=== PATIENT | female | born 1955 | race Caucasian/White ===

== ENCOUNTER 2017-11-05 18:35 | Emergency (ER) | payer OTHER, MEDICAID ==
[2017-11-05 19:12] VITALS: BMI 27.4
[2017-11-05] MEDS ORDERED: CATAPRES TAB 0.1 MG PO ONE (19:51)
--- NOTE | 2017-11-05 19:51 | DR.GENAD ---
HPI - PCP Primary Care Physician: CLINTON - Complaint/Symptoms Chief Complaint Doctors Comments: Patient states that she broke her toes of the left foot just before Thanksgiving. She presents with complaint of toe pain Chief Complaint:: PT STATES" MY BLOOD PRESSUE IS HIGH AND I HURT MY FOOT AND I THINK THE PAIN IS CAUSING MY BLOOD PRESSURE TO GO UP." PT POINTS TO LEFT FOOT - Source History Provided: Patient - Mode of Arrival Mode of Arrival: Ambulatory - Timing Onset of Chief Complaint: 10/16/17 PMH - PMH Past Medical History: Yes Past Medical History: COPD, Hypertension Past Surgical History: Yes Surgical History: , TAG MARKER Surgery - Family History History of Family Medical Conditions: Yes Family Medical History: Cancer, OR, Coronary Artery Disease - Social History Type of Tobacco Use: Cigarettes Does any household member use tobacco: Yes Alcohol Use: None Do you use any recreational Drugs:: No Lives With: Family Lives Where: Home - infectious screening In the last 2 months have you had wt loss of >10#?: NO Have you had fever, night sweats or hemotysis?: No Have you traveled outside the country in the last 6 months?: No Isolation: Standard ROS - Review of Systems Eyes: No Symptoms Reported ENTM: No Symptoms Reported Respiratoy: No Symptoms Reported Cardiovascular: No Symptoms Reported Gastrointestinal/Abdominal: No Symptoms Reported Genitourinary: No Symptoms Reported Neurological: No Symptoms Reported Musculoskeletal: No Symptoms Reported, Foot (left foit pain) Integumentary: No Symptoms Reported Hematologic/Lymphatic: No Symptoms Reported Endocrine: No Symptoms Reported Psychiatric: No Symptoms Reported All Other Systems: Reviewed and Negative PE - Vital Signs Vitals: Temperature 99.4 F Pulse Rate 97 Respiratory Rate 18 Blood Pressure [Right Arm] 158/71 Blood Pressure 188/92 O2 Sat by Pulse Oximetry 97 - General General Appearance: Alert, In No Apparent Distress - Head Head Exam: Normal Inspection, Atraumatic - Eyes Eye exam: Normal Appearance, PERRL, EOMI - ENT ENT Exam: Normal Exam External Ear Exam: Normal External Inspection TM/Canal Exam: Bilateral Normal Nose Exam: Normal Nose Exam Mouth Exam: Normal Inspection Throat Exam: Normal Inspection - Neck Neck Exam: Normal Inspection, Full ROM - Chest Chest Inspection: Normal Inspection, Symmetric Chest Wall Rise - Respiratory Respiratory Exam: Normal Lung Sounds Bilat Respiratory Exam: Bilateral Clear to Auscultation - Cardiovascular Cardiovascular Exam: Regular Rate, Normal Rhythm - Abdominal Exam Abdominal Exam: Normal Inspection, Normal Bowel Sounds, Soft Abdominal Tenderness: negative: RUQ, RLQ, LUQ, LLQ, Epigastrium, Suprapubic, Diffuse, Mild, Moderate, Severe, Other - Extremities Extremities Exam: Normal Inspection, Full ROM - Back Back Exam: Normal Inspection, Full ROM - Neurologic Neurological Exam: Alert, Oriented X3, CN II-XII Intact - Psychiatric Psychiatric Exam: Normal Affect, Normal Mood - Skin Skin Exam: Warm, Dry, Intact Course - Reevaluation 1st: Improved ROR - XRAY XRAY Interpreted by: Radiologist (There is fracture of the distal left 2nd through 4th metatarsals, somewhat subacute appearing. Great toe MTP joint DJD noted. Impression: Acute to subacute fractures of the distal metaphysis of the left 2nd through 4th toes metatarsals.) - Diagnosis Discharge Problem: Subacute metatarsal fractures left foot - Discharge Plan Condition: Stable - Follow ups/Referrals Follow ups/Referrals: SHIN ALONZO [Primary Care Provider] - 3 days - Instructions
[2017-11-05] MEDS ORDERED: CATAPRES TAB 0.1 MG ONE (19:52)
[2017-11-05] MEDS ORDERED: TORADOL 60 MG VIAL IM ONE (19:54)
[2017-11-05] MEDS ORDERED: TORADOL 60 MG VIAL ONE (19:58)
[2017-11-05] MEDS ORDERED: CATAPRES TAB 0.2 MG PO ONE ×2 (20:37→21:13)
[2017-11-05] MEDS ORDERED: CATAPRES TAB 0.2 MG ONE ×2 (20:39→21:15)
--- NOTE | 2017-11-05 20:59 | RAD ---
Left foot three views Indication: Pain after injury. Hypertension. Findings: There is fracture of the distal left 2nd through 4th metatarsals, somewhat subacute appeari ng. Great toe MTP joint DJD noted. Soft tissue over the forefoot noted. Impression: Acute to subacute fractures of the distal metaphysis of the left 2nd through 4th toes met atarsals. Reported By:
[2017-11-05 21:56] VITALS: BP 192/93
== END 2017-11-05 21:50 | disposition home or self-care (01) ==
LOC: ER 18:35
DX: S92.342A Displaced fracture of fourth metatarsal bone, left foot, initial encounter for closed fracture (principal); Y33.XXXA Other specified events, undetermined intent, initial encounter; Y92.9 Unspecified place or not applicable
CPT/HCPCS: 73630; 96372; 99282; 99283; J1885

== ENCOUNTER 2017-12-17 17:10 | Emergency (ER) | payer OTHER, MEDICAID ==
[2017-12-17 17:17] VITALS: BP 194/90; BMI 24.2
== END 2017-12-17 18:09 | disposition left against medical advice (07) ==
LOC: ER 17:23
DX: R11.10 Vomiting, unspecified (principal)
CPT/HCPCS: 99281

== ENCOUNTER → 2018-01-03 | Outpatient (CLI) | payer OTHER, MEDICAID ==
[2017-12-17 17:17] VITALS: BP 194/90
--- NOTE | 2018-01-04 08:33 | RAD ---
HISTORY: Neck pain after falling. Study: Cervical spine with obliques: Image quality is degraded secondary to patient body habitus. Comparison: None Findings: The neutral lateral view shows slight loss of normal cervical lordosis. The swimmer's shows normal a lignment from C1 through T1 otherwise. Moderate to moderately severe disc space narrowing is present at C3/C4 and C4/C5 as well C5/C6. There appears to most likely be moderate disc space narrowing at C6/C7. The prevertebral soft tissues are normal. The posterior elements are intact. The pre odonto id space is normal. The lateral masses C1 are symmetric about the lateral masses of C2 and the odont oid process. There is a moderate facet arthropathy and uncovertebral joint arthropathy extending fro m its C3/C4 through C6/C7. There is moderate bony foraminal stenosis on the right at C5/C6, C6/C7 wi th similar findings on the left. On the left there appears to be moderate foraminal stenosis at C4/C 5 as well. Moderate osteopenia is present. IMPRESSION: 1. Cervical spondylosis as described above. 2. Loss of normal cervical lordosis which may be seen in normal individuals, be positional or second andera to muscle spasm. 3. No acute bony abnormalities are identified. Reported By:
== END | disposition home or self-care (01) | DRG 552 ==
LOC: RAD 15:31
PROVIDERS: ATTEND Internal Medicine
DX: M54.2 Cervicalgia (principal); M47.892 Other spondylosis, cervical region
CPT/HCPCS: 72050

== ENCOUNTER 2018-03-28 12:00 | Emergency (ER) | payer OTHER, MEDICAID ==
[2018-03-28 12:10] VITALS: BP 134/75; BMI 29.0
--- NOTE | 2018-03-28 14:26 | DR.GENAD ---
HPI - PCP Primary Care Physician: Dr. Riley - HPI Comment HPI Comment: HER ILLNESS STARTED FEW WEEKS AGO. TOOK Z-PACK AND MEDROL DOSE PACK. SYMTOMS STATED AGAIN AFTER COMPLETING MEDS. NOW RUNNING LOW GRADE FEVER. LAST NIGHT COUGH KEPT HER UP ALL NIGHT. - Complaint/Symptoms Chief Complaint Doctors Comments: INCREASING SOB AND ANOREXIA WITH GENERALIZE WEAKNESS TIMES 2 DAYS. Chief Complaint:: Pt c/o coughing, SOB, and decreased appetite for 1 week. Self Treatment fo Chief Complaint: Pt has been on steroids, z-pack and albuterol inhaler with no relief - Nurses notes reviewed Nurses Notes Review: Yes - Source History Provided: Patient - Mode of Arrival Mode of Arrival: Ambulatory - Timing Onset of Chief Complaint: 03/26/18 Came on: Gradually - Duration Duration: Constant Duration: Days - Severity Severity: Moderate PMH - PMH Past Medical History: Yes Past Medical History: Arthritis, COPD, Hypertension Past Medical History Comment: mitral valve prolapse Past Surgical History: Yes Surgical History: Past Surgical History Comment: tubal ligation - Family History History of Family Medical Conditions: Yes Family Medical History: Diabetes Mellitus, Hypertension - Social History Does patient currently use any type of tobacco product: Yes Have you used tobacco products in the last 12 months: Yes Type of Tobacco Use: Cigarettes Does any household member use tobacco: No Alcohol Use: None Do you use any recreational Drugs:: No Lives With: Alone Lives Where: Home - infectious screening In the last 2 months have you had wt loss of >10#?: NO Have you had fever, night sweats or hemotysis?: No Have you traveled outside the country in the last 6 months?: No Isolation: Standard ROS - Review of Systems Constitutional: Fever, Weakness, Fatigue. negative: Chills Eyes: No Symptoms Reported. negative: Eye Pain, Discharge ENTM: Ear Pain, Nose Discharge, Nose Congestion. negative: Throat Pain Respiratoy: No Symptoms Reported, Productive Cough, Short of Breath, Wheezing. negative: Hemoptysis Cardiovascular: Chest Pain, Palpitations Gastrointestinal/Abdominal: Nausea Genitourinary: No Symptoms Reported. negative: Dysuria, Frequency, Hematuria Neurological: Headache, Weakness, Dizziness Musculoskeletal: Muscle Pain Integumentary: No Symptoms Reported Hematologic/Lymphatic: No Symptoms Reported Endocrine: No Symptoms Reported All Other Systems: Reviewed and Negative PE - Vital Signs Vitals: Temperature 98.6 F Pulse Rate 126 Respiratory Rate 18 Blood Pressure [Right Arm] 192/93 Blood Pressure 134/75 O2 Sat by Pulse Oximetry 97 - General Limitations: No Limitations General Appearance: Alert - Head Head Exam: Normal Inspection - Eyes Eye exam: PERRL. negative: Scleral Icterus, Conjunctival Injection - ENT ENT Exam: Normal External Ear Exam. negative: Normal Oropharynx, TM's Normal Bilaterally External Ear Exam: Normal External Inspection TM/Canal Exam: Bilateral Normal Nose Exam: Normal Nose Exam Mouth Exam: Normal Inspection Throat Exam: Normal Inspection - Neck Neck Exam: Trachea Midline - Chest Chest Inspection: Symmetric Chest Wall Rise - Respiratory Respiratory Exam: Normal Lung Sounds Bilat, Respiratory Distress Respiratory Exam: Bilateral Wheezing, Bilateral Rhonchi, Upper Rhonchi, Lower Wheezing, Lower Rhonchi - Cardiovascular Cardiovascular Exam: Regular Rate, Normal Rhythm, Normal Heart Sounds - Abdominal Exam Abdominal Exam: Normal Bowel Sounds, Soft. negative: Tenderness - Extremities Extremities Exam: Normal Inspection - Back Back Exam: Normal Inspection - Neurologic Neurological Exam: Alert, Oriented X3, CN II-XII Intact. negative: Motor Sensory Deficit - Psychiatric Psychiatric Exam: Normal Affect, Normal Mood - Skin Skin Exam: Normal Color MDM - Additional Information Additional Information Obtained From: Family - Differential Diagnosis Differential Diagnosis: PNEUMONIA, BRONCHITIS, PULM EMBOLISM, SINUSITIS Course - Treatment Treatment: SEE ORDERS. - Education/Counseling Education/Counseling: Patient, Family, Education Educated On: Diagnosis, Needs for Follow Up ROR - Labs Reviewed Laboratory Results Reviewed?: Yes Result Diagrams: 03/28/18 14:40 03/28/18 14:40 Laboratory: WBC 11.7 X10^3/uL (3.6-10.0) H 03/28/18 14:40 RBC 4.17 X10^6/uL (3.5-5.4) 03/28/18 14:40 Hgb 12.8 g/dL (12.0-16.0) 03/28/18 14:40 Hct 37.3 % (36.0-47.0) 03/28/18 14:40 MCV 89.5 fL (80.0-100.0) 03/28/18 14:40 MCH 30.6 pg (27.0-34.0) 03/28/18 14:40 MCHC 34.2 g/dL (33.0-35.0) 03/28/18 14:40 RDW 15.7 % (11.6-16.5) 03/28/18 14:40 Plt Count 259 X10^3/uL (150.0-450.0) 03/28/18 14:40 MPV 8.7 fL (7.4-11.0) 03/28/18 14:40 Neut % (Auto) 69.1 % (42.0-75.0) 03/28/18 14:40 Lymph % (Auto) 24.3 % (21.0-51.0) 03/28/18 14:40 [place] % (Auto) 4.4 % (0.0-13.0) 03/28/18 14:40 Eos % (Auto) 1.3 % (0.9-2.9) 03/28/18 14:40 Baso % (Auto) 0.9 % (0.2-1.0) 03/28/18 14:40 Neut # (Auto) 8.1 x10^3/uL (2.2-4.8) H 03/28/18 14:40 Lymph # (Auto) 2.9 X10^3/uL (1.3-2.9) 03/28/18 14:40 [place] # (Auto) 0.5 x10^3/uL (0.3-0.8) 03/28/18 14:40 Eos # (Auto) 0.1 x10^3/uL (0.0-0.2) 03/28/18 14:40 Baso # (Auto) 0.1 X10^3/uL (0.0-0.1) 03/28/18 14:40 Absolute Nucleated RBC 0.0 /100WBC 03/28/18 14:40 D-Dimer 503 ng/mL (0-400) H* 03/28/18 14:40 Sodium 140 mmol/L (136-145) 03/28/18 14:40 Corrected Sodium TNP 03/28/18 14:40 Potassium 4.4 mmol/L (3.5-5.1) 03/28/18 14:40 Chloride 104 mmol/L (98-107) 03/28/18 14:40 Carbon Dioxide 29.4 mmol/L (21-32) 03/28/18 14:40 BUN 18 mg/dL (7-18) 03/28/18 14:40 Creatinine 1.02 mg/dL (0.55-1.02) 03/28/18 14:40 Est GFR (MDRD) Af Amer > 60 (>60) 03/28/18 14:40 Est GFR (MDRD) Non-Af 59 (>60) 03/28/18 14:40 Glucose 102 mg/dL (65-99) H 03/28/18 14:40 Calcium 9.3 mg/dL (8.5-10.1) 03/28/18 14:40 Corrected Calcium TNP 03/28/18 14:40 Total Bilirubin 0.20 mg/dL (0.2-1.0) 03/28/18 14:40 AST 14 Units/L (15-37) L 03/28/18 14:40 ALT 19 Units/L (12-78) 03/28/18 14:40 Alkaline Phosphatase 98 Units/L (46-116) 03/28/18 14:40 Creatine Kinase 32 Units/L (26-192) 03/28/18 14:40 CK-MB (CK-2) < 1.0 ng/mL (0-4.0) 03/28/18 14:40 CK/CKMB % Calc 3.1 % (<4) 03/28/18 14:40 Troponin I < 0.02 ng/mL (0-1.5) 03/28/18 14:40 Total Protein 8.2 g/dL (6.4-8.2) 03/28/18 14:40 Albumin 3.8 g/dL (3.4-5.0) 03/28/18 14:40 Globulin 4.4 g/dL (2.5-4.5) 03/28/18 14:40 Albumin/Globulin Ratio 0.9 Ratio (1.1-2.1) L 03/28/18 14:40 - XRAY XRAY Interpreted by: Radiologist XRAY Findings: REPOR DISCUSS WITH PATIENT. - EKG Rhythm: NSR (EKG NOTED.) - Diagnosis Discharge Problem: COPD exacerbation Pneumonia Qualifiers: Pneumonia type: due to unspecified organism Laterality: left Lung location: lower lobe of lung Qualified Code(s): J18.1 - Lobar pneumonia, unspecified organism - Discharge Plan Disposition: 01 HOME, SELF-CARE Condition: Stable Prescriptions: Benzonatate [TESSALON PERLES *] 200 mg PO TID PRN #30 cap PRN Reason: Cough Levofloxacin [LEVAQUIN TAB 750 MG *] 750 mg PO DAILY #7 tab - Follow ups/Referrals Follow ups/Referrals: SHIN RILEY [Primary Care Provider] - 3 days - Instructions Instructions: Cough, Adult, [id number], Chronic Obstructive Pulmonary Disease , [id number], Pneumonitis, Community-Acquired Pneumonia, Adult Additional Instructions: RETURN TO ED IF WORSE.
[2018-03-28 14:51] LABS: BASOPHILS # (AUTO) 0.1 X10^3/uL (0.0-0.1); BASOPHILS % (AUTO) 0.9 % (0.2-1.0); EOSINOPHILS # (AUTO) 0.1 x10^3/uL (0.0-0.2); EOSINOPHILS % (AUTO) 1.3 % (0.9-2.9); HEMATOCRIT 37.3 % (36.0-47.0); HEMOGLOBIN 12.8 g/dL (12.0-16.0); LYMPHOCYTES # (AUTO) 2.9 X10^3/uL (1.3-2.9); LYMPHOCYTES % (AUTO) 24.3 % (21.0-51.0); MEAN CORPUSCULAR HEMOGLOBIN 30.6 pg (27.0-34.0); MEAN CORPUSCULAR HGB CONC 34.2 g/dL (33.0-35.0); MEAN CORPUSCULAR VOLUME 89.5 fL (80.0-100.0); MEAN PLATELET VOLUME 8.7 fL (7.4-11.0); MONOCYTES # (AUTO) 0.5 x10^3/uL (0.3-0.8); MONOCYTES % (AUTO) 4.4 % (0.0-13.0); NEUTROPHILS # (AUTO) 8.1 x10^3/uL (2.2-4.8); NEUTROPHILS % (AUTO) 69.1 % (42.0-75.0); PLATELET COUNT 259 X10^3/uL (150.0-450.0); RED BLOOD COUNT 4.17 X10^6/uL (3.5-5.4); RED CELL DISTRIBUTION WIDTH 15.7 % (11.6-16.5); WHITE BLOOD COUNT 11.7 X10^3/uL (3.6-10.0)
--- NOTE | 2018-03-28 14:58 | RAD ---
Exam: Chest two views History: 62-year-old female with hypertension and COPD. Comparison: Previous chest radiograph from 12/05/2016 Findings: Heart size and pulmonary vasculature are normal. Mild degree of atelectasis is noted posteriorly at t he left base. Otherwise lungs are clear. No significant effusion on either side. Impression: No acute cardiopulmonary abnormality is identified on this exam. Reported By:
[2018-03-28 15:11] LABS: ALANINE AMINOTRANSFERASE 19 Units/L (12-78); ALBUMIN 3.8 g/dL (3.4-5.0); ALKALINE PHOSPHATASE 98 Units/L (46-116); ASPARTATE AMINO TRANSFERASE 14 Units/L (15-37); BLOOD UREA NITROGEN 18 mg/dL (7-18); CALCIUM 9.3 mg/dL (8.5-10.1); CARBON DIOXIDE 29.4 mmol/L (21-32); CHLORIDE 104 mmol/L (98-107); CKMB % 3.1 % (<4); CREATINE KINASE 32 Units/L (26-192); CREATINE KINASE MB < 1.0 ng/mL (0-4.0); CREATININE 1.02 mg/dL (0.55-1.02); SODIUM 140 mmol/L (136-145); TOTAL PROTEIN 8.2 g/dL (6.4-8.2); TROPONIN I < 0.02 ng/mL (0-1.5); eGFR BLACK RACES > 60 (>60); eGFR NON BLACK RACES 59 (>60)
--- NOTE | 2018-03-28 16:57 | CT ---
HISTORY: Chest pain, shortness of breath Study: CTA chest Comparison: Same day radiograph Technique: Multiple axial images of the chest were obtained after the administration of IV contrast. 3D reconstructions were performed utilizing radial maximum intensity projection imaging. Dose reduct ion techniques including Automated Exposure Control (AEC) and adjustment of mA and kV were utilized. Findings: Contrast opacification of the pulmonary arteries is adequate to the level of the segmental branches. No evidence of acute pulmonary emboli. Normal-sized heart with coronary atherosclerotic calcification noted. No pericardial effusion. The aorta appears normal in course and caliber. There is atelectasis and ground-glass infiltrate in the left lower lobe with impaction of distal bronchioles that could b e due to aspiration or infection. The remaining airways appear patent. Right lung is clear. No pneumo thorax or effusion. There are some mildly prominent mediastinal lymph nodes present that are nonspeci fic in nature. No bulky adenopathy identified. 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 The posterior elements appear intact. The visualized portions of the upper abdomen are grossly unrem arkable. IMPRESSION: 1. Atelectasis and ground-glass infiltrate in the left lower lobe with impaction of distal bronchiole s that could be due to aspiration or infection. 2. No acute pulmonary emboli. 3. Coronary atherosclerotic disease. Reported By:
== END 2018-03-28 17:30 | disposition home or self-care (01) ==
LOC: ER 12:20
DX: J44.1 Chronic obstructive pulmonary disease with (acute) exacerbation (principal); J18.1 Lobar pneumonia, unspecified organism; R94.31 Abnormal electrocardiogram [ECG] [EKG]
CPT/HCPCS: 36415; 71046; 71275; 80053; 82550; 82553; 84484; 85025; 85378; 93005; 93010; 96365; 99283; 99285; A4222